=== PATIENT | male | born 1990 | race Caucasian/White ===

== ENCOUNTER 2016-08-29 10:20 | Emergency (ER) | payer OTHER ==
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
[2016-08-29] MEDS ORDERED: DIPH,PERTUS(ACELL)TETVAC-LF 0.5 ML VIAL IM ONE (11:52)
[2016-08-29 12:17] VITALS: BP 152/91; PULSE 97; RESP 18; TEMP 97.7
== END 2016-08-29 14:36 | disposition home or self-care (01) ==
LOC: EC 10:20
DX: S05.02XA Injury of conjunctiva and corneal abrasion without foreign body, left eye, initial encounter (principal); T54.3X1A Toxic effect of corrosive alkalis and alkali-like substances, accidental (unintentional), initial encounter; T26.62XA Corrosion of cornea and conjunctival sac, left eye, initial encounter; I10 Essential (primary) hypertension; X58.XXXA Exposure to other specified factors, initial encounter; Z79.899 Other long term (current) drug therapy; Z23 Encounter for immunization
CPT/HCPCS: 90471; 90715; 99284